=== PATIENT | female | born 1965 | race Asian ===

== ENCOUNTER 2018-10-28 06:14 | Day surgery (SDC) | payer OTHER ==
[~2018-10-28] VITALS: Ht 152.4 cm; Wt 90.0 kg
[~2018-10-28 06:14] MED LIST: SODIUM CHLORIDE 0.9% 1,000 ML IV ONE
[2018-10-28] MEDS ORDERED: LIDOCAINE 2% 5 ML JELLY TP ONE (06:15)
[2018-10-28] MEDS ORDERED: LIDOCAINE 4% 50 ML SOLUTION TP ONE (06:15)
[2018-10-28] MEDS ORDERED: BENZOCAINE 20% 50 MCG/SPRAY 57 GM TP ONE (06:15)
[2018-10-28] MEDS ORDERED: SODIUM CHLORIDE 0.9% 1,000 ML IV ONE (06:30)
[2018-10-28] MEDS ORDERED: MIDAZOLAM HCL 2 MG/2 ML VIAL ONE (08:02)
[2018-10-28] MEDS ORDERED: FentaNYL CITRATE-PF 100 MCG/2 ML VIAL ONE (08:02)
[2018-10-28] MEDS ORDERED: MethylPREDNISolone SOD SUCC 125 MG/2 ML VIAL IVP ONE (08:30)
[2018-10-28] MEDS ORDERED: OXYGEN THERAPY IH SCH (20:00)
== END 2018-10-28 09:45 | disposition home or self-care (01) ==
LOC: SURGERY 06:14
PROVIDERS: ATTEND Internal Medicine Critical Care Medicine
DX: R05 Cough (principal); R91.1 Solitary pulmonary nodule; J34.89 Other specified disorders of nose and nasal sinuses; J98.8 Other specified respiratory disorders; J38.4 Edema of larynx; B37.0 Candidal stomatitis; G47.33 Obstructive sleep apnea (adult) (pediatric); J98.11 Atelectasis; F32.9 Major depressive disorder, single episode, unspecified; F41.9 Anxiety disorder, unspecified; M17.12 Unilateral primary osteoarthritis, left knee; Z98.41 Cataract extraction status, right eye; Z79.899 Other long term (current) drug therapy
CPT/HCPCS: 31623; 31624; 71045; 87015; 87070; 87077; 87101; 87186; 87205; 87206; 87220; 88108; 88312; J2250; J2930; J3010; J7030